=== PATIENT | male | born 1980 | race Caucasian/White ===

== ENCOUNTER 2016-10-24 03:26 | Emergency (ER) | payer OTHER ==
--- NOTE | ~2016-10-24 | CT4 ---
[facility] A Service of [facility] & [facility] RADIOLOGY TEXT RESULTS PATIENT: JOANNA SALAS LOCATION: SED : 76 UNIT #: [id number] AGE: [address]: Roberto Senior MD SEX: M ORDER DR: [id number] [address] [id number] [id number] MR#: [id number] Acc #: [id number] NAME: JOANNA SALAS : 1980 SEX: M STUDY DATE/TIME: 10/24/2016 03:48 UNIT: SED ROOM: STUDY DESCRIPTION: CT Abd and Pelv Wo Cont Attending Physician: Roberto Senior M.D. Ordering Physician: Roberto Senior M.D. MEDICAL IMAGING REPORT This report is preliminary unless electronic signature is present. EXAM CT abdomen and pelvis 10/24/2016 03:48 INDICATION Right flank pain, hematuria that started last night. History of kidney stones. Pain is currently 8/10. TECHNIQUE Axial noncontrast images were obtained through the abdomen and pelvis. Multiplanar reformats were obtained. Comparison made with 04/01/2013. This CT examination was performed with one or more of the following radiation dose reduction techniques: automatic exposure control, adjustment of mA and/or kV according to patient size, and iterative reconstruction. FINDINGS ABDOMEN: Lung bases are clear. Gallbladder is contracted. No renal or ureteral stones are seen. There is no hydronephrosis. The unenhanced solid organs are normal. The stomach is distended with food debris but otherwise unremarkable. The rest of the GI tract has a normal unopacified appearance as well. No free fluid. PELVIS: There are no lower ureteral stones. The bladder is normal. No free fluid is seen. The appendix is normal, as is the remainder of the unopacified GI tract. Scattered sclerotic lesions in the pelvis appear stable. These are presumably benign bone islands. IMPRESSION 1. No renal or ureteral stones. No hydronephrosis. 2. The stomach is distended with food debris but is otherwise unremarkable. The rest of the GI tract is normal including the appendix. [facility] A Service of [facility] & [facility] RADIOLOGY TEXT RESULTS PATIENT: JOANNA SALAS LOCATION: [facility] [place] [birth year] UNIT #: [id number] AGE: [address]: Roberto Senior MD SEX: M ORDER DR: Dictated by... Ricki Reeder Jr., M.D. THIS IS AN ELECTRONICALLY VERIFIED REPORT Ricki Reeder Jr., M.D. at 10/24/2016 12:40 PM MELANIE/eula TD: 10/24/2016 10:01 JOB #: [id number] MEDICAL IMAGING REPORT
[~2016-10-24 03:26] MED LIST: NO MEDICATIONS
[2016-10-24 03:38] LABS: URINE SOURCE CLEAN CATCH
[2016-10-24 03:42] LABS: BASOPHIL# 0.1 X10e3 (0-0.3); BASOPHIL% 1.3 % (0-2.5); DIFF IND NO; EOSINOPHIL# 0.4 X10e3 (0-0.7); EOSINOPHIL% 3.6 % (0.0-7.0); HEMATOCRIT 49.9 % (38.0-50.0); HEMOGLOBIN 16.5 gm/dL (13.0-16.0); LYMPHOCYTE% 27.8 % (17.0-45.0); MEAN CELL VOLUME 85.9 FL (83-96); MEAN CORPUSCULAR HEMOGLOBIN 28.4 PG (28-34); MEAN CORPUSCULAR HGB CONC 33.1 g/dL (30-36); MEAN PLATELET VOLUME 8.8 FL (6.5-11.5); MONOCYTE# 0.9 X10e3 (0-1.0); MONOCYTE% 8.8 % (3.0-12.0); NEUTROPHIL# 6.3 X10e3 (1.5-7.1); NEUTROPHIL% 58.5 % (40-75); PLATELET COUNT 298 X10e3 (140-420); RED BLOOD COUNT 5.81 X10e (3.90-5.60); RED CELL DISTRIBUTION WIDTH 14.3 % (11.0-15.5); WHITE BLOOD COUNT 10.7 X10e3 (4.0-10.5)
[2016-10-24 03:45] LABS: URINE APPEARANCE SL CLOUDY; URINE BILIRUBIN NEG (NEG); URINE BLOOD 3+ (NEG); URINE COLOR YELLOW; URINE GLUCOSE NEG (NORM); URINE KETONE NEG (NEG); URINE LEUKOCYTE ESTERASE 1+ (NEG); URINE NITRATE NEG (NEG); URINE PROTEIN 2+ (NEG); URINE UROBILINOGEN 0.2 MG/DL (NORM)
[2016-10-24 03:51] LABS: MICRO INDICATED? YES
[2016-10-24 03:52] LABS: CULTURE INDICATED? YES; URINE BACTERIA NEG (NEG); URINE MUCUS PRESENT; URINE RBC INNUM /[HPF] (0-2); URINE SQUAMOUS EPITHELIAL CELL OCCAS /[HPF]
[2016-10-24 03:53] LABS: URINE AMORPHOUS SEDIMENT AMORP URATES; URINE SPERM PRESENT
[2016-10-24 03:57] LABS: BLOOD UREA NITROGEN 14 mg/dL (9-23); BUN/CREATININE RATIO 11.66; CALCIUM SERUM 9.5 mg/dL (8.4-10.2); CARBON DIOXIDE 28 mmol/L (22-31); CHLORIDE 104 mmol/L (100-111); CREATININE SERUM 1.2 mg/dL (0.6-1.4); GLOM FILT RATE Estimated ABOVE60 mL/min (>60); GLUCOSE FASTING 100 mg/dL (70-110); POTASSIUM 3.6 mmol/L (3.5-5.1); SODIUM 138 mmol/L (135-145)
[2016-10-24 04:45] LABS: AMPHETAMINE POS (NEG); BARBITURATES NEG (NEG); BENZODIAZEPINES NEG (NEG); COCAINE NEG (NEG); MARIJUANA NEG (NEG); OPIATES NEG (NEG); TRICYCLIC ANTIDEPRESSANTS NEG (NEG); U METHADONE NEG (NEG)
== END 2016-10-24 05:00 | disposition home or self-care (01) ==
LOC: SED 03:26
PROVIDERS: Emergency Medicine
DX: R10.9 Unspecified abdominal pain (principal); R03.0 Elevated blood-pressure reading, without diagnosis of hypertension; Z87.442 Personal history of urinary calculi; Z98.890 Other specified postprocedural states
CPT/HCPCS: 74176; 80048; 80307; 81003; 85025; 87086; 96361; 96374; 96375; 99284; J1885; J2405